=== PATIENT | male | born 1945 | race Hispanic/Latino ===

== ENCOUNTER → 2017-10-05 | Outpatient (CLI) | payer OTHER ==
[~2017-10-05] MED LIST: ATOR20TA65 PO; ENAL10TA PO; GLIM4TAB3 PO; GLYB5TAB8 PO; LEVO75TA10 PO; METAMUCIL FIBER PO; METF10004 PO; NATE120T9 PO; OMEP40CA PO; SIMV80TA5 PO
== END | disposition home or self-care (01) ==
LOC: OIH 13:06
PROVIDERS: ATTEND Internal Medicine Cardiovascular Disease
DX: Z13.6 Encounter for screening for cardiovascular disorders (principal)
CPT/HCPCS: 75571

== ENCOUNTER 2017-10-23 06:04 | Day surgery (SDC) | payer BC, MEDICARE ==
[~2017-10-23] VITALS: Ht 165.1 cm; Wt 68.6 kg
[~2017-10-23 06:04] MED LIST changes: -METAMUCIL FIBER PO; -OMEP40CA PO; -SIMV80TA5 PO
[2017-10-23 06:44] VITALS: BP 108/62
[2017-10-23] MEDS ORDERED: SODIUM CHLORIDE 0.9% 1000ML 1,000 ML IV ONE (06:54)
[2017-10-23 08:20] VITALS: BP 109/70
== END 2017-10-23 08:45 | disposition home or self-care (01) ==
LOC: DAH 06:04 → ENDO 06:04
PROVIDERS: ATTEND Internal Medicine Gastroenterology
DX: Z09 Encounter for follow-up examination after completed treatment for conditions other than malignant neoplasm (principal); Z86.010 Personal history of colon polyps; E78.5 Hyperlipidemia, unspecified; E03.9 Hypothyroidism, unspecified; I10 Essential (primary) hypertension; E11.9 Type 2 diabetes mellitus without complications; K21.9 Gastro-esophageal reflux disease without esophagitis; Z90.49 Acquired absence of other specified parts of digestive tract; Z68.25 Body mass index [BMI] 25.0-25.9, adult; Z83.3 Family history of diabetes mellitus
CPT/HCPCS: 45378; 82948 ×2; 93005; A4606; J7030

== ENCOUNTER 2024-08-16 06:49 | Day surgery (SDC) | payer MEDICARE ==
[2024-08-16] VITALS (12 sets, daily range): BP systolic 82–136; BP diastolic 50–73; PULSE 58–64; RESP 12–18; TEMP 97.2–97.8
[~2024-08-16] VITALS: Ht 165.1 cm; Wt 72.6 kg
[~2024-08-16 06:49] MED LIST changes: +ENAL-89 PO; -ENAL10TA PO; -GLIM4TAB3 PO; +GLIM4TAB36 PO; +METF-446 PO; -METF10004 PO
[2024-08-16] MEDS: 0.9%NACL 1000ML 1,000 ML IV ONE (08:18)
[2024-08-16] MEDS ORDERED: GLIP10TA16 PO (08:22)
[2024-08-16] MEDS ORDERED: AMLO2.5T4 PO (08:25)
[2024-08-16] MEDS ORDERED: MULT-1203 PO (08:25)
[2024-08-16] MEDS ORDERED: TAMS-1 PO (08:25)
[2024-08-16] MEDS ORDERED: FAMO20TA8 PO (08:25)
[2024-08-16] MEDS ORDERED: SEMA7TAB2 PO (08:25)
[2024-08-16] MEDS ORDERED: PIOG45TA64 PO (08:25)
[2024-08-16] MEDS ORDERED: FOLI0.8T22 PO (08:25)
[2024-08-16] MEDS ORDERED: proPOFol 10 MG/ML 20ML VIAL IV ONE (10:51)
== END 2024-08-16 12:16 | disposition home or self-care (01) ==
LOC: ENDO 06:49 → DAH 06:49 → ENDO 12:16
PROVIDERS: ATTEND Internal Medicine Gastroenterology
DX: Z12.11 Encounter for screening for malignant neoplasm of colon (principal); K63.89 Other specified diseases of intestine; E11.9 Type 2 diabetes mellitus without complications; I10 Essential (primary) hypertension; E78.00 Pure hypercholesterolemia, unspecified; Z90.49 Acquired absence of other specified parts of digestive tract; Z79.84 Long term (current) use of oral hypoglycemic drugs; Z79.899 Other long term (current) drug therapy
CPT/HCPCS: 82948 ×2; 45380; J7030 ×2; J2704; A4620; A4215 ×2; A4223; A4657; A7002; A4222; A4221; A4663; A4606; J3490

== ENCOUNTER → 2025-05-17 | Outpatient (CLI) | payer MEDICARE ==
[~2025-05-17] MED LIST changes: +AMLO2.5T4 PO; -ENAL-89 PO; +FAMO20TA8 PO; +FOLI0.8T22 PO; -GLIM4TAB36 PO; +GLIP10TA16 PO; -GLYB5TAB8 PO; +IOHEXOL 350 MG/ML 100ML INFUS..BTL IV ONE; +MULT-1203 PO; -NATE120T9 PO; +PIOG45TA64 PO; +SEMA7TAB2 PO; +TAMS-55 PO
--- NOTE | 2025-05-21 20:28 | CARDIOLOGY ---
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 A dedicated, limited window, coronary imaging protocol was used, with single breath-hold, retrospective ECG gating, and automated arrhythmia rejection. 100 cc of low osmolar contrast agent: Omnipaque 350 was delivered via a 18-gauge IV catheter in the right antecubital fossa, using a power injector and followed by 60 cc of normal saline bolus as a chaser. Collimated images were reformatted at 0.5 mm intervals, and sent to an offline independent workstation for interpretation, using 3D anatomic reconstructions: Curved multiplanar reconstructions, maximum intensity projections, and multiplanar imaging. No metoprolol was administered prior to scanning due to low baseline heart rate. 0.4 mg SL nitroglycerin was given. CORONARY ARTERY DESCRIPTIONS: The coronary arteries arise in normal position. Left main coronary artery: Normal caliber vessel that bifurcates into the LAD and LCx. No stenosis. Left anterior descending coronary artery: Normal caliber vessel and gives rise to diagonal and septal branches. There is calcified plaque in the proximal LAD with 20-30% stenosis. Left circumflex coronary artery: Normal caliber, dominant and gives rise to a large OM branch. No stenosis. Right coronary artery: Small, non-dominant vessel giving rise to the PL and PDA branches. No stenosis. CAD-RADs: 2, mild non-obstructive CAD. Thoracic Aorta: Normal diameter. Liliana Lazcano MD Cardiovascular Disease [facility] LILIANA LAZCANO MD May 21, 2025 20:28
== END | disposition home or self-care (01) ==
LOC: RAH 08:22
PROVIDERS: ATTEND Internal Medicine Cardiovascular Disease
DX: I25.10 Atherosclerotic heart disease of native coronary artery without angina pectoris (principal); R06.02 Shortness of breath
CPT/HCPCS: 75574; Q9967